=== PATIENT | male | born 1980 | race African-American/Black ===

== ENCOUNTER 2019-01-02 12:40 | Emergency (ER) | payer OTHER, BC ==
[2019-01-02 12:49] VITALS: BP 128/56
[2019-01-02] MEDS ORDERED: LIDOCAINE 1% INJ-PF (10 MG/ML) 30 ML SDV INJ ONE (12:49)
[2019-01-02] MEDS ORDERED: DIPH/PERTUSS(ACELL)/TETANUS VAC/PF 0.5 ML SYR (>=10YO) IM ONE (12:50)
--- NOTE | 2019-01-02 13:05 | ER Document Report ---
HPI - HPI Time Seen by Provider: 01/02/19 12:49 Pain Level: 3 Notes: Patient is a 38-year-old male presenting to the emergency department with complaints of laceration to his right hand. Patient reports he cut it on a large piece of metal this morning. He is unsure when his last tetanus was. There is no active bleeding noted at this time. Past Medical History - General Information source: Patient - Social History Smoking Status: Current Some Day Smoker Frequency of alcohol use: None Drug Abuse: None Family History: Reviewed & Not Pertinent - Medical History Medical History: Negative Surgical Hx: Negative - Immunizations Immunizations up to date: No Hx Diphtheria, Pertussis, Tetanus Vaccination: No Vertical Provider Document - CONSTITUTIONAL Notes: PHYSICAL EXAMINATION: GENERAL: Well-appearing, well-nourished and in no acute distress. HEAD: Atraumatic, normocephalic. EYES: Pupils equal round extraocular movements intact, conjunctiva are normal. ENT: Nares patent NECK: Normal range of motion LUNGS: No respiratory distress Musculoskeletal: Slightly limited range of motion to patient's second digit. Normal cap refill, strong radial pulse. NEUROLOGICAL: Normal speech, normal gait. PSYCH: Normal mood, normal affect. SKIN: Warm, Dry, normal turgor, no rashes or lesions noted. 2 cm laceration noted to patient's right hand on the dorsal surface between the thumb and second digit. No active bleeding noted at this time. Wound approximates well. No visible tendon or bone. - INFECTION CONTROL TRAVEL OUTSIDE OF THE [place] IN LAST 30 DAYS: No Course - Re-evaluation Re-evalutation: Laceration was repaired under sterile technique, patient tolerated well. Increased range of motion after sutures were placed. Patient will be placed in a finger splint and encouraged to follow-up with orthopedics if he does not regain full range of motion. Of note patient has nearly full range of motion at the time of discharge. Very unlikely tendon injury. - Vital Signs Vital signs: Temp Pulse Resp BP Pulse Ox 98.1 F 76 18 128/56 H 99 01/02/19 12:47 01/02/19 12:47 01/02/19 12:47 01/02/19 12:47 01/02/19 12:47 Procedures - Laceration/Wound Repair Right hand Wound length (cm): 2 Wound's Depth, Shape: Superficial Laceration pre-procedure: Sterile PPE donned Anesthetic type: 1% Lidocaine Irrigated w/ Saline (mLs): 200 Wound Repaired With: Sutures Suture Size/Type: 4:0 Number of Sutures: 5 Post-procedure NV exam normal: Yes Complications: No Discharge - Discharge Clinical Impression: Hand laceration Qualifiers: Encounter type: initial encounter Foreign body presence: without foreign body Laterality: right Qualified Code(s): S61.411A - Laceration without foreign body of right hand, initial encounter Condition: Stable Disposition: HOME, SELF-CARE Additional Instructions: Laceration Care Your laceration has been sutured to keep the skin edges aligned during healing. The time of suture removal depends on the nature and location of your cut. Please follow the care instructions the doctor has outlined for you and return for further care, according to the schedule you've been given. Keep the wound and dressing clean. Unless you were told otherwise, you may shower daily, blotting the wound dry with a clean, unused towel. At other times, If the dressing gets wet or blood soaked, remove it and blot the wound dry, then reapply a new dressing. Unless you were instructed otherwise, dressings should be changed at least daily. If any signs of infection occur (swelling, redness, increasing tenderness, red streaks, tender lumps in the armpit or groin above the laceration, or fever), see the doctor immediately. Follow-up with orthopedics, let them know you are seen in the emergency department and had a laceration with a possible tendon injury. Please return to the emergency department or your primary care provider in 10-12 days for suture removal. Please return earlier if you develop any signs of infection such as increased redness, swelling, foul-smelling drainage or fever. Prescriptions: Cephalexin [Cephalexin 500 MG Tablet] 1 tab PO BID #14 tablet Referrals: PATRICA MAYORGA DO [ACTIVE STAFF] - Follow up as needed
== END 2019-01-02 13:39 | disposition home or self-care (01) ==
LOC: ER 12:40
DX: S61.411A Laceration without foreign body of right hand, initial encounter (principal); Z23 Encounter for immunization; W26.8XXA Contact with other sharp object(s), not elsewhere classified, initial encounter; Y99.0 Civilian activity done for income or pay
CPT/HCPCS: 99282; 90471; 90715; 12001; J3490